=== PATIENT | male | born 2000 | race Two or more races ===

== ENCOUNTER → 2024-08-30 | Outpatient (CLI) | payer MEDICAID, SELFPAY ==
--- NOTE | 2024-08-30 11:45 | XR_ITS ---
Examination: Breast ultrasound, unilateral, right complete Date and time of exam: August 30, 2024 1133 hours INDICATIONS: Palpable lump retroareolar 8 years, right breast sonogram March 19, 2023 retroareolar asymmetry 17 x 6 x 14 mm Technique: Real-time mitchell scale ultrasonographic imaging performed right breast including all 4 quadrants as well as nipple retroareolar and axillary region. Findings: Retroareolar glandular tissue 10 x 6 x 10 mm IMPRESSION: BI-RADS Category 3: Probably benign findings Recommend 1 additional 6 month right breast sonogram follow-up to document stability of probably benign glandular tissue retroareolar region right breast
== END | disposition home or self-care (01) ==
PROVIDERS: PCP Nurse Practitioner Family; Referring Provider Nurse Practitioner Family; Visit Provider Nurse Practitioner Family
DX: R92.8 Other abnormal and inconclusive findings on diagnostic imaging of breast (principal)
CPT/HCPCS: 76641